=== PATIENT | male | born 1990 | race Caucasian/White ===

== ENCOUNTER 2021-01-19 20:54 | Emergency (ER) | payer BC, OTHER ==
[2021-01-19 21:16] VITALS: BP 118/88; PULSE 83; TEMP 98.9; BMI 23.1
[2021-01-19] MEDS ORDERED: CEPHALEXIN MONOHYDRATE 500 MG CAPSULE (UD) PO ONE (21:26)
[2021-01-19] MEDS ORDERED: CEPHALEXIN MONOHYDRATE 500 MG CAPSULE (UD) ONE (21:28)
== END 2021-01-19 21:38 | disposition home or self-care (01) ==
LOC: FER 20:54
DX: S62.639A Displaced fracture of distal phalanx of unspecified finger, initial encounter for closed fracture (principal); S60.10XA Contusion of unspecified finger with damage to nail, initial encounter
CPT/HCPCS: 73140-TC-RT-FY; 99284-25